=== PATIENT | female | born 2005 | race Caucasian/White ===

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

== ENCOUNTER 2024-08-18 08:51 | Emergency (ER) | payer SELFPAY ==
[~2024-08-18] VITALS: Ht 157.5 cm; Wt 90.6 kg
[~2024-08-18 08:51] MED LIST changes: +KEFLEX500 MG PO; +ONDANSETRON4 MG PO; +PHENAZOPYRIDIN100 M1 PO; +TAM75CAP PO
[2024-08-18 09:30] LABS: BASO% 0.3 % (0-3); EOS% 0.8 % (0-8); HEMATOCRIT 40.9 % (37.0-47.0); HEMOGLOBIN 13.7 g/dl (12.0-16.0); IMMATURE GRANULOCYTES 0.2 % (0.0-5.0); LYMPH% 28.8 % (15-41); MEAN CELL VOLUME 86.5 fL CALC (80.0-100.0); MEAN CORPUSCULAR HGB CONC 33.5 g/dL CAL (32.0-36.0); MONO% 7.5 % (2-13); NEUT# 7.56 thou/uL (2.00-7.15); NEUT% 62.4 % (42-76); RED BLOOD COUNT 4.73 mill/uL (4.20-5.60); RED CELL DISTRI WIDTH 12.6 % (11.5-15.5)
[2024-08-18 09:39] LABS: ALBUMIN 4.5 g/dL (3.2-5.0); BILIRUBIN, TOTAL 0.6 mg/dL (0.02-1.3); CREATININE 0.6 mg/dL (0.5-1.0); POTASSIUM 4.1 mmol/l (3.5-5.1); TOTAL PROTEIN 7.7 g/dL (6.3-8.2)
[2024-08-18 10:37] LABS: URINE BILIRUBIN - DIPSTICK Negative (NEGATIVE); URINE BLOOD DIPSTICK Trace-intact (NEGATIVE); URINE GLUCOSE - DIPSTICK Negative (NEGATIVE); URINE KETONE Negative (NEGATIVE); URINE LEUK ESTERASE Negative (NEGATIVE); URINE PROTEIN - DIPSTICK Negative (NEG-TRACE); URINE UROBILINOGEN - DIPSTICK 0.2 E.U./dL (0.2)
[2024-08-18 10:58] LABS: URINE BACTERIA FEW hpf; URINE COLOR Straw; URINE EPITHELIAL CELLS RARE EPI/hpf (0-FEW); URINE NITRITE - DIPSTICK Positive (Negative); URINE RBC 0-2 RBC/hpf (0-5)
[2024-08-18] MEDS ORDERED: CEPHALEXIN500 M1 PO (11:17)
[2024-08-18 11:32] VITALS: BP 124/72
== END 2024-08-18 11:05 | disposition home or self-care (01) | DRG 690 ==
LOC: ED 08:51
PROVIDERS: Family Medicine
DX: N39.0 Urinary tract infection, site not specified (principal)